=== PATIENT | female | born 1995 | race Caucasian/White ===

== ENCOUNTER 2018-04-08 12:17 | Emergency (ER) | payer BC, OTHER ==
[2018-04-08 12:25] VITALS: BP 108/71
--- NOTE | 2018-04-08 13:17 | UC ---
Abdominal Pain Female HPI - HPI Summary HPI Summary: This patient is a 22 year old F presenting to [facility] with a chief complaint of mild periumbilical pain for the last few months. Recently she states she noticed a lump in her umbilicus. The patient rates the pain 5/10 in severity. Symptoms aggravated by standing up. Patient denies fever, chills, and irregular menstruation. LNMP was one month ago, no hx of ovarian cysts. Pt has had one child. - History of Current Complaint Chief Complaint: UCAbdominalPain Stated Complaint: ABD PAIN Time Seen by Provider: 04/08/18 13:08 Hx Obtained From: Patient Hx Last Menstrual Period: 03/10/18 Onset/Duration: Lasting Weeks, Still Present Timing: Constant Severity Initially: Moderate Severity Currently: Moderate Pain Intensity: 5 Pain Scale Used: 0-10 Numeric Allergies/Adverse Reactions: Allergies Allergy/AdvReac Type Severity Reaction Status Date / Time No Known Allergies Allergy Verified 04/08/18 12:25 PMH/Surg Hx/FS Hx/Imm Hx Previously Healthy: Yes Other History Of: Negative For: Anticoagulant Therapy - Surgical History Surgical History: None - Family History Known Family History: Positive: None, Hypertension, Diabetes Family History: no hx of chrons or UC - Social History Alcohol Use: None Substance Use Type: None Smoking Status (MU): Never Smoked Tobacco Have You Smoked in the Last Year: No Review of Systems Constitutional: Negative - fever and chills Gastrointestinal: Abdominal Pain, Other - lump near umbilicus All Other Systems Reviewed And Are Negative: Yes Physical Exam - Summary Physical Exam Summary: Appearance: Well appearing, no pain distress Skin: warm, dry, reflects adequate perfusion Head/face: normal Eyes: EOMI, JENNI ENT: mucous membranes moist Neck: supple, non-tender Respiratory: CTA, breath sounds present Cardiovascular: RRR, pulses symmetrical Abdomen: non-tender, soft Bowel Sounds: present Musculoskeletal: normal, strength/ROM intact Neuro: normal, sensory motor intact, A&Ox3 Triage Information Reviewed: Yes Vital Signs: Initial Vital Signs Temp 98.6 F 04/08/18 12:22 Pulse 98 04/08/18 12:22 Resp 18 04/08/18 12:22 BP 108/71 04/08/18 12:22 Pulse Ox 100 04/08/18 12:22 Vital Signs Reviewed: Yes Abd Pain Female Course/Dx - Course Course Of Treatment: Patient presents without difficulty and tenderness today but having had pain over the last several months. Her abdomen is soft and benign with no rebound or guarding. No definite hernia is felt that she complains of a small lump or protrusion and her periumbilical area usually when she stands up. Patient refused any testing here. She states that she had performed 1 at home. She is not really concerned that she is . There is a little bit of fullness in her right abdomen and so I will treat her symptomatically as possible mild constipation. I have given her instructions regarding hernia. Follow-up family doctor. - Differential Dx/Diagnosis Differential Diagnosis: Appendicitis, Constipation, , Other - Umbilical hernia Provider Diagnoses: Umbilical hernia Discharge - Sign-Out/Discharge Documenting (check all that apply): Patient Departure All imaging exams completed and their final reports reviewed: No Studies - Discharge Plan Condition: Improved Disposition: HOME Prescriptions: Polyethylene Glycol 3350* [Miralax*] 17 gm PO TID PRN #1 bottle PRN Reason: Constipation Patient Education Materials: Umbilical Hernia (ED) Referrals: Claudia MURPHY,[facility] [Primary Care Provider] - Additional Instructions: Follow-up with your family doctor on Monday. If you have persistent tenderness in the area of the belly button, a hernia that is stuck out, gets reddened or you have other concerns go to the ER or see a surgeon to have it fixed. Return if worse, fever, new symptoms or other concerns. Ibuprofen as needed for comfort. - Billing Disposition and Condition Condition: IMPROVED Disposition: Home - Attestation Statements Document Initiated by Andrew: Yes Documenting Scribe: Mayco Wheeler Provider For Whom Andrew is Documenting (Include Credential): Randy Mcclure MD Scribe Attestation: Mayco Richards , scribed for Randy Mcclure MD on 04/08/18 at 1404. Scribe Documentation Reviewed: Yes Provider Attestation: The documentation as recorded by the Mayco brown accurately reflects the service I personally performed and the decisions made by me, Randy Mcclure MD
== END 2018-04-08 13:23 | disposition home or self-care (01) ==
LOC: UCEAST 12:17
DX: K42.9 Umbilical hernia without obstruction or gangrene (principal)
CPT/HCPCS: 99212; G0463

== ENCOUNTER 2019-02-05 20:44 | Emergency (ER) | payer OTHER ==
[2019-02-05 20:53] VITALS: BP 111/68
[2019-02-05] MEDS ORDERED: Ibuprofen TAB* 600 MG PO ONE (21:02)
--- NOTE | 2019-02-05 21:03 | UC ---
Throat Pain/Nasal Waylon HPI - HPI Summary HPI Summary: 23 yo female presents with headache, body aches, sore throat, and nausea since last night. Fever today and took tylenol with mild relief. She is able to eat, drink, and tolerate po without difficulty, but has a decreased appetite. Denies sinus symptoms, cough, rash, abdominal pain, dysuria, neck pain, photophobia. - History of Current Complaint Chief Complaint: UCHeadache Stated Complaint: headache Time Seen by Provider: 02/05/19 21:01 Hx Obtained From: Patient Hx Last Menstrual Period: 03/10/18 Onset/Duration: Sudden Onset Severity: Moderate Pain Intensity: 6 Pain Scale Used: 0-10 Numeric - Allergies/Home Medications Allergies/Adverse Reactions: Allergies Allergy/AdvReac Type Severity Reaction Status Date / Time No Known Allergies Allergy Verified 02/05/19 20:53 Home Medications: Home Medications Acetaminophen [Acetaminophen Extra Strength] 1,000 mg PO 02/05/19 [History] D-Methorphan/PE/Acetaminophen [Vicks Dayquil Cold & Flu 10-5-325 mg/15Ml] 1 liq PO 02/05/19 [History] PMH/Surg Hx/FS Hx/Imm Hx - Additional Past Medical History Additional PMH: None Other History Of: Negative For: Anticoagulant Therapy - Surgical History Surgical History: None - Family History Known Family History: Positive: Hypertension, Diabetes Family History: no hx of chrons or UC - Social History Lives: With Family Alcohol Use: Occasionally Substance Use Type: None Smoking Status (MU): Never Smoked Tobacco Have You Smoked in the Last Year: No Review of Systems All Other Systems Reviewed And Are Negative: Yes Constitutional: Positive: Fever, Fatigue Skin: Positive: Negative Eyes: Positive: Negative ENT: Positive: Sore Throat Respiratory: Positive: Negative Cardiovascular: Positive: Negative Gastrointestinal: Positive: Nausea Genitourinary: Positive: Negative Motor: Positive: Negative Neurovascular: Positive: Negative Musculoskeletal: Positive: Negative Neurological: Positive: Headache Psychological: Positive: Negative Physical Exam - Summary Physical Exam Summary: GENERAL: NAD. WDWN. No pain distress. SKIN: No rashes, sores, lesions, or open wounds. HEENT: Head: AT/NC. Eyes: Conjunctiva clear without inflammation or discharge. Ears: Hearing grossly normal. TMs intact, no bulging, erythema, or edema. Nose: Nasal mucosa pink and moist. NTTP maxillary and frontal sinus. Throat: Posterior oropharynx mild erythema and 2+ tonsillar enlargement. No exudates. Uvula midline. No hoarse voice or muffled voice. NECK: Supple. Nontender. No lymphadenopathy. No meningismus or nuchal rigidity. CHEST: CTAB. No r/r/w. No accessory muscle use. Breathing comfortably and in no distress. CV: RRR. Without m/r/g. Pulses intact. Cap refill <2seconds NEURO: Alert. PSYCH: Age appropriate behavior. Triage Information Reviewed: Yes Vital Signs: Initial Vital Signs Temp 101.2 F 02/05/19 20:50 Pulse 118 02/05/19 20:50 Resp 18 02/05/19 20:50 BP 111/68 02/05/19 20:50 Pulse Ox 100 02/05/19 20:50 Laboratory Tests 02/05/19 21:01 Group A Strep Rapid Positive A Vital Signs Reviewed: Yes Throat Pain/Nasal Course/Dx - Course Course Of Treatment: POC strep positive. In the clinic she was given ibuprofen for her fever, zofran for her nausea, and ceftriaxone 1gm for her strep throat. Will rx for amoxicillin - Differential Dx/Diagnosis Provider Diagnosis: Strep pharyngitis Discharge - Sign-Out/Discharge Documenting (check all that apply): Patient Departure All imaging exams completed and their final reports reviewed: No Studies - Discharge Plan Condition: Stable Disposition: HOME Prescriptions: Amoxicillin PO (*) [Amoxicillin 500 MG CAP*] 500 mg PO Q12H #20 cap Patient Education Materials: Strep Throat (DC) [facility] - Additional Instructions: If you develop a fever, shortness of breath, chest pain, new or worsening symptoms - please call your PCP or go to the ED immediately. Rest and drink plenty of clear fluids (water!) Advance your diet as tolerated - Billing Disposition and Condition Condition: STABLE Disposition: Home
[2019-02-05] MEDS ORDERED: cefTRIAXone VIAL(*) 1,000 MG VIAL IM ONE (21:13)
[2019-02-05] MEDS ORDERED: Ondansetron ODT TAB* 4 MG SL ONE (21:13)
[2019-02-05] MEDS ORDERED: Lidocaine 1% INJ* 10 MG/ML 30 ML SDV INJ ONE (21:13)
[2019-02-05] MEDS ORDERED: Lidocaine 1% MPF ** 5 ML VIAL INJ ONE (21:16)
== END 2019-02-05 21:55 | disposition home or self-care (01) ==
LOC: UCEAST 20:44
DX: J02.0 Streptococcal pharyngitis (principal)
CPT/HCPCS: 81002; 87651; 90471; 99212; A9270-GY; G0463; J0696

== ENCOUNTER 2019-03-16 11:50 | Emergency (ER) | payer OTHER ==
--- NOTE | 2019-03-16 13:05 | ED ---
GI/ HPI - HPI Summary HPI Summary: This patient is a 23-year-old female who presents to the ED with irregular and heavy bleeding. She states she has not been consistent with her nuva ring, and took out for a period of time when she was not supposed to in January. She states she is typically very regular with her periods being mild to moderate in severity. However, 3 weeks ago she noted to 1 week of very heavy flow with clots without abdominal pain. She states she felt a "pressure" which was mild just prior to her period. She states the period then stopped for 1.5 weeks and started again. She is unsure of . She is unable to quantify how much. Denies any dizziness or lightheadedness. She states this has never happened to her before. She does not have a history of ovarian cysts or fibroids. - History of Current Complaint Chief Complaint: EDVaginalBleeding Time Seen by Provider: 03/16/19 12:25 Stated Complaint: IRREGULAR BLEEDING PER PT Hx Obtained From: Patient Hx Last Menstrual Period: 03/10/18 Onset/Duration: Started Hours Ago Timing: Intermittent Severity: Moderate Current Severity: Moderate Vaginal Bleeding Description: Dark Red Pain Intensity: 0 Additional Signs & Symptoms: Positive: Menses Irregular, Other: - nuva ring Aggravating Factor(s): Nothing Alleviating Factor(s): Nothing - Risk Factors GI Bleed Risk Factor(s): Negative Spontaneous AB Risk Factor(s): Negative Placental Abruption Risk Factor(s): Negative Ectopic Risk Factor(s): Negative Ovarian Torsion Risk Factor(s): Reproductive Age - Allergy/Home Medications Allergies/Adverse Reactions: Allergies Allergy/AdvReac Type Severity Reaction Status Date / Time No Known Allergies Allergy Verified 02/05/19 20:53 PMH/Surg Hx/FS Hx/Imm Hx Previously Healthy: Yes Endocrine/Hematology History: Denies: Hx Anticoagulant Therapy - Immunization History Hx Pertussis Vaccination: No Immunizations Up to Date: Yes Infectious Disease History: No Infectious Disease History: Denies: Hx of Known/Suspected MRSA, Traveled Outside the [place] in Last 30 Days - Family History Known Family History: Positive: Hypertension, Diabetes Family History: no hx of chrons or UC - Social History Occupation: Unemployed Lives: With Family Alcohol Use: Occasionally Hx Substance Use: No Substance Use Type: Reports: None Hx Tobacco Use: No Smoking Status (MU): Never Smoked Tobacco Have You Smoked in the Last Year: No Review of Systems Constitutional: Negative Negative: Fever, Chills, Fatigue, Skin Diaphoresis Negative: Palpitations, Chest Pain Positive: Abdominal Pain. Negative: Vomiting, Diarrhea, Nausea Genitourinary: Negative Positive: no symptoms reported, see HPI Negative: Arthralgia, Myalgia Skin: Negative Neurological: Negative All Other Systems Reviewed And Are Negative: Yes Physical Exam Triage Information Reviewed: Yes Vital Signs On Initial Exam: Initial Vitals Temp Pulse Resp BP Pulse Ox 98.3 F 82 16 116/88 98 03/16/19 11:53 03/16/19 11:53 03/16/19 11:53 03/16/19 11:53 03/16/19 11:53 Vital Signs Reviewed: Yes Appearance: Positive: Well-Appearing, Well-Nourished Skin: Positive: Warm, Skin Color Reflects Adequate Perfusion Head/Face: Positive: Normal Head/Face Inspection Eyes: Positive: EOMI, JENNI, Conjunctiva Clear Neck: Positive: Supple, No Lymphadenopathy Respiratory/Lung Sounds: Positive: Clear to Auscultation, Breath Sounds Present Cardiovascular: Positive: Normal, RRR, Pulses are Symmetrical in both Upper and Lower Extremities Abdomen Description: Positive: Nontender, No Organomegaly Musculoskeletal: Positive: Normal, Strength/ROM Intact Neurological: Positive: Speech Normal Diagnostics - Vital Signs Vital Signs Temp Pulse Resp BP Pulse Ox 03/16/19 11:53 98.3 F 82 16 116/88 98 - Laboratory Result Diagrams: 03/16/19 13:12 03/16/19 13:12 Lab Statement: Any lab studies that have been ordered have been reviewed, and results considered in the medical decision making process. GIGU Course/Dx - Course Course Of Treatment: During the course of treatment, the patient is evaluated for heavy vaginal bleeding with irregularities. She does not feel lightheaded or dizzy. She offers no other complaints. Labs are unremarkable including an H &H. HCG negative. Patient states she is feeling okay for discharge at this time. She will be discharged with menorrhagia. She will follow-up with [facility] if symptoms persist. This patient is denying any pain, an ultrasound is not obtained at this time. - Diagnoses Differential Diagnoses - Female: Other - Fibroids, irregularities, hormone problem Provider Diagnoses: Menorrhagia, Metrorrhagia Discharge ED - Sign-Out/Discharge Documenting (check all that apply): Patient Departure Patient Received Moderate/Deep Sedation with Procedure: No - Discharge Plan Condition: Stable Disposition: HOME Patient Education Materials: Menorrhagia (ED) Referrals: Maral Tenorio PA [Primary Care Provider] - Additional Instructions: Please follow up with your OBGYN for an US if symptoms continue Use a pad at this time Ibuprofen for any discomfort - Billing Disposition and Condition Condition: STABLE Disposition: Home - Attestation Statements Provider Attestation: I was available for consult. This patient was seen by the [facility]. The patient was not presented to, seen by, or examined by me. Nabil Acuna MD
[2019-03-16 13:20] LABS: ABS Lymphocytes 1.6 10^3/ul (1.0-4.8); ABS Monocytes 0.6 10^3/ul (0-0.8); ABS Neutrophils 6.9 10^3/ul (1.5-7.7); Eosinophil % 0.5 %; Hematocrit 37 % (35-47); Hemoglobin 12.6 g/dL (12.0-16.0); Lymphocyte % 17.1 %; Mean Corpuscular HGB Conc 34 g/dL (31-36); Mean Corpuscular Hemoglobin 29 pg (27-31); Mean Corpuscular Volume 85 fL (80-97); Mean Platelet Volume 7.9 fL (7.4-10.4); Platelet Count 309 10^3/uL (150-450); Red Blood Count 4.36 10^6 /uL (3.70-4.87); Red Cell Distribution Width 13 % (10-15); White Blood Count 9.1 10^3/uL (3.5-10.8)
[2019-03-16 13:28] LABS: Activated Partial Thrombo Time 27.1 seconds (26.0-38.0); INR 0.99 (0.82-1.09)
[2019-03-16 13:50] LABS: HCG Pregnancy < 0.60 mIU/mL
[2019-03-16 14:57] LABS: Anion Gap 9 mmol/L (2-11); CO2 Carbon Dioxide 23 mmol/L (22-32); Calcium 9.2 mg/dL (8.6-10.3); Chloride 108 mmol/L (101-111); Potassium 3.4 mmol/L (3.5-5.0); Sodium 140 mmol/L (135-145)
[2019-03-16 14:58] LABS: Urine Appearance Cloudy; Urine Bacteria 1+ (Absent); Urine Bilirubin Negative (Negative); Urine Blood 3+ (Negative); Urine Color Yellow; Urine Glucose Negative (Negative); Urine Ketones Negative (Negative); Urine Nitrite Negative (Negative); Urine Protein Negative (Negative); Urine Red Blood Cell 3+(>10/hpf) (Absent); Urine Specific Gravity 1.015 (1.010-1.030); Urine Squamous Epithelial Cell Present (Absent); Urine Urobilinogen Negative (Negative); Urine White Blood Cell 1+(6-10/hpf) (Absent)
[2019-03-16 15:03] LABS: ALT 8 U/L (7-52); AST 11 U/L (13-39); Albumin/Globulin Ratio 1.2 (1-3); Alkaline Phosphatase 45 U/L (34-104); BUN/Creatinine Ratio 15.7 (8-20); Blood Urea Nitrogen 11 mg/dL (6-24); EGFR African American 127.8 (>60); EGFR Non-African American 105.6 (>60); Globulin 3.3 g/dL (2-4); Glucose 77 mg/dL (70-100); Total Protein 7.3 g/dL (6.4-8.9)
[2019-03-16 15:34] VITALS: BP 119/77
== END 2019-03-16 15:31 | disposition home or self-care (01) ==
LOC: ED 11:50
DX: N92.0 Excessive and frequent menstruation with regular cycle (principal); N92.1 Excessive and frequent menstruation with irregular cycle
CPT/HCPCS: 36415; 80053; 81003; 81015; 84702; 85025; 85610; 85730; 87086; 99282

== ENCOUNTER 2024-03-02 19:01 | Inpatient (IN) ==
[2024-03-02] MEDS ORDERED: Lidocaine 1% VIAL 10 MG/ML 30 ML VIAL INJ PRN (19:35)
[2024-03-02] MEDS ORDERED: Nalbuphine 10 MG/ML 1 ML VIAL IV PRN (19:35)
[2024-03-02 20:07] LABS: ABS Basophils 0.1 10^3/uL (0.0-0.1); ABS Eosinophils 0.1 10^3/uL (0.0-0.5); ABS Lymphocytes 1.9 10^3/uL (1.0-4.8); ABS Monocytes 1.5 10^3/uL (0.0-0.9); ABS Neutrophils 10.4 10^3/uL (1.5-7.6); ABS Nucleated RBC 0.01 10^3/ul; Eosinophil % 0.8 %; Hematocrit 31.2 % (35-45); Hemoglobin 10.1 g/dL (11.5-14.3); Lymphocyte % 13.4 %; Mean Corpuscular Hgb Conc 32.4 g/dL (31-36); Mean Corpuscular Volume 80.3 fL (80-97); Mean Platelet Volume 8.4 fL (7.5-11.2); Platelet Count 372 10^3/uL (150-450); Red Blood Count 3.89 10^6/uL (3.63-4.92)
[2024-03-02] MEDS: Lactated Ringers 1000 ml BAG 1,000 ML IV ONE (20:35)
[2024-03-02 21:06] LABS: Urine Benzodiazepine Screen None Detected (None Detect); Urine Cannabinoids Screen None Detected (None Detect); Urine Opiates Screen None Detected (None Detect)
[2024-03-02] MEDS: Oxytocin in LR 20,000 MILLI.UNIT/1,000 ML BAG IV SCH (21:14)
[2024-03-02] MEDS ORDERED: Glycerin ADULT 2.4 gm SUPP PR PRN (21:21)
[2024-03-02] MEDS ORDERED: Lactated Ringers 1000 ml BAG 1,000 ML IV SCH (22:00)
[2024-03-02] MEDS: Witch Hazel PAD JAR TOPICAL PRN (22:44)
[2024-03-02] MEDS: Dibucaine 1% OINT 28.35 GM TUBE PR PRN (22:44)
[2024-03-02] MEDS: Buffered Lidocaine 1% SYRIN 1 ml INTRADERM ONE (23:43)
[2024-03-02] MEDS: Lactated Ringers 1000 ml BAG 1,000 ML IV SCH (23:43)
[2024-03-03 06:53] LABS: Hematocrit 27.2 % (35-45); Hemoglobin 8.7 g/dL (11.5-14.3); Mean Corpuscular Hemoglobin 25.6 pg (27-33); Mean Platelet Volume 7.9 fL (7.5-11.2); Platelet Count 314 10^3/uL (150-450); White Blood Count 17.1 10^3/uL (3.8-11.8)
[2024-03-03 06:56] LABS: ABS Basophils 0.1 10^3/uL (0.0-0.1); ABS Lymphocytes 1.7 10^3/uL (1.0-4.8); ABS Monocytes 1.6 10^3/uL (0.0-0.9); ABS Neutrophils 13.6 10^3/uL (1.5-7.6); Eosinophil % 0.2 %
[2024-03-03 19:44] VITALS: BP 109/55
== END 2024-03-04 13:41 | disposition home or self-care (01) | DRG 807 ==
LOC: MCHOBOUT 19:01 → MCHOB 19:28
PROVIDERS: ADMIT Advanced Practice Midwife; ATTEND Advanced Practice Midwife